=== PATIENT | female | born 1955 | race Caucasian/White ===

== ENCOUNTER 2018-06-01 12:41 | Inpatient (IN) | payer OTHER ==
[~2018-06-01] VITALS: Ht 162.6 cm; Wt 38.1 kg
[2018-06-01] MEDS ORDERED: CALCIUM + D3 E1 EACH PO (13:31)
== END 2018-06-11 13:05 | disposition home or self-care (01) | DRG 330 ==
LOC: O/R 06-08 08:48 → SURG 06-08 08:48 → SURH 06-08 12:45 → SURG 06-08 13:39 → SURH 06-08 19:45 → SURG 06-11 13:05
PROVIDERS: Colon & Rectal Surgery
PROC: 0DTN4ZZ Resection of Sigmoid Colon, Percutaneous Endoscopic Approach (ICD-10-PCS; 2018-06-08)
PROC: 0TQB4ZZ Repair Bladder, Percutaneous Endoscopic Approach (ICD-10-PCS; 2018-06-08)
PROC: 0WUF47Z Supplement Abdominal Wall with Autologous Tissue Substitute, Percutaneous Endoscopic Approach (ICD-10-PCS; 2018-06-08)
PROC: 0DJD8ZZ Inspection of Lower Intestinal Tract, Via Natural or Artificial Opening Endoscopic (ICD-10-PCS; 2018-06-08)
PROC: 0UQG4ZZ Repair Vagina, Percutaneous Endoscopic Approach (ICD-10-PCS; principal; 2018-06-08 19:45)
DX: N82.3 Fistula of vagina to large intestine (principal); K57.20 Diverticulitis of large intestine with perforation and abscess without bleeding

== ENCOUNTER 2019-07-08 07:22 | Day surgery (SDC) | payer OTHER ==
[~2019-07-08 07:22] MED LIST: CALCIUM + D3 E1 EACH PO
== END 2019-07-08 12:05 | disposition home or self-care (01) ==
LOC: AMB-ENDOS 07:22
DX: K63.5 Polyp of colon (principal); K64.1 Second degree hemorrhoids